=== PATIENT | female | born 1990 | race Two or more races ===

== ENCOUNTER 2021-11-25 07:47 | Outpatient (CLI) | payer OTHER | END 2021-11-25 07:54 | disposition home or self-care (01) | LOC: NUCLEAR 07:47 | PROVIDERS: ATTEND Physical Medicine & Rehabilitation | DX: D49.2 Neoplasm of unspecified behavior of bone, soft tissue, and skin (principal); Z85.43 Personal history of malignant neoplasm of ovary | CPT/HCPCS: 78816; A9552 ==